=== PATIENT | male | born 1995 | race Caucasian/White ===

== ENCOUNTER 2018-11-27 20:47 | Emergency (ER) | payer BC, SELFPAY ==
[2018-11-27 20:49] VITALS: BP 130/84; PULSE 84; RESP 17; TEMP 36.4; O2SAT 100; BMI 28.0
--- NOTE | 2018-11-27 21:15 | CT_ITS ---
STUDY: CT BRAIN WITHOUT CONTRAST REASON FOR EXAM: Male, 23 years old. Trauma RADIATION DOSAGE (If Supplied By Facility): CTDIvol = ( 44.99 ) mGy, DLP = ( 762.36 ) mGycm TECHNIQUE: Transaxial CT imaging of the brain was performed without administration of intravenous contrast material. Individualized dose optimization techniques were used for this CT. COMPARISON: No relevant priors. FINDINGS: Normal soft tissue structures. Normal calvarium. Normal size ventricles and extra-axial spaces for the patient's age. Normal white matter tracts of the cerebral hemispheres. Normal basal ganglia and thalami. Normal brainstem. Normal cerebellum. There is no intracranial hemorrhage. There are no findings of an acute ischemic infarction. Acute fracture of the distal nasal bones. Chip fracture of the anterior nasal spine Large mucous retention cyst in right maxillary sinus. CT/Brain/Head without Contrast IMPRESSION: Normal unenhanced CT scan of the brain. Acute fracture of distal nasal bones and anterior nasal spine Electronically Signed: Judson Gabriel MD at 21:37 EDT , Service support ,
--- NOTE | 2018-11-27 21:16 | CT_ITS ---
STUDY: CT FACIAL BONES WITHOUT CONTRAST REASON FOR EXAM: Male, 23 years old. Trauma RADIATION DOSAGE (If Supplied By Facility): CTDIvol = ( 29.38 ) mGy, DLP = ( 598.88 ) mGycm TECHNIQUE: The patient was scanned in a multi detector CT scanner. Sagittal and coronal images were reconstructed. Individualized dose optimization techniques were used for this CT. COMPARISON: None. FINDINGS: Diffuse soft tissue swelling of the nose and premaxillary region in the midline Normal orbital pan[place] and orbital contents. Mildly depressed fracture of the distal right nasal bone and more proximal left nasal bone. Tiny chip fracture of the anterior nasal spine with mild separation of fracture fragments Large mucous retention cyst right maxillary sinus and smaller one in the left sphenoid sinus. Mild mucosal thickening of the ethmoid sinuses greater on the right CT/Sinus/Facial Bone IMPRESSION: Acute fractures of the nasal bones and tiny chip fracture of the anterior nasal spine Electronically Signed: Judson Gabriel MD at 21:40 EDT , Service support ,
--- NOTE | 2018-11-27 23:05 | ED.DCSUM_ITS ---
History of Present Illness Chief Complaint: Syncope Narrative: Patient presenting secondary to a syncopal episode and a facial injury. Patient reports that he had just gotten to the bar and got his first beer and stepped outside to smoke a cigarette. He reports that he was drinking the beer, and he aspirated it. He reports that he started to forcibly cough, and then suffered a syncopal episode. He reports that when he woke up there are people standing around him and he had a significant amount of facial pain. He reports a moderate amount of sharp pain in his face worse with palpation, and reports that he is continuing to have bleeding. Patient reports that his tetanus status is up-to-date. He is not on any sort of anticoagulants. Past Medical History - Allergies and Home Meds Allergies/Adverse Reactions: Allergies No Known Allergies Allergy (Verified 11/27/18 20:48) Primary Care Physician: Terry Bronson MD [STAFF PHYSICIAN] - 1-2 Weeks Care Physician,No Primary [Primary Care Provider] - 3-5 Days suture removal Smoking Status: Current every day smoker Review of Systems All systems negative except as indicated Eyes: Denies: Visual changes - bilaterally ENT: Reports: - - Facial and nasal trauma Physical Exam Vital Signs/Narrative: Vital Signs Temp Pulse Resp BP Pulse Ox 11/27/18 20:49 97.5 F L 84 17 130/84 H 100 General: - - Airway is patent, breath sounds are equal bilateral, central and peripheral pulses 2+ and symmetric. GCS 15 out of 15. Well-nourished well- developed male no acute distress sitting comfortably in bed. Head: - - Abrasion noted over the patient's left forehead. Patient has a significant amount of nasal swelling and tenderness to palpation. He has dried blood in both of his nares. There is does not appear to be a nasal septal hematoma. Patient has a small half centimeter laceration just underneath the right nostril. There does not appear to be any malocclusion. Eyes: Perrl, EOMI ENT: TM's clear, No hemotympanum or drainage, No trauma Neck: Nontender, Full ROM Cardiovascular: Regular rate, Regular rhythm, No murmurs Respiratory: No distress, CTA bilaterally, Chest nontender Abdomen: Soft, Nontender, Nondistended, Normal bowel sounds Back: Nontender Skin: Normal color, No rash Neurological: Alert, Oriented x3, Cranial nerves II-XII grossly intact, Normal Strength, Normal Sensation Psychological: Normal affect Diagnostic/Tx/Re-eval - Medical Decision Making Patient presented secondary to facial injury. The patient's passing out episode really sounds like a vagal event after he aspirated. I do not believe that further work-up is indicated for that. CT brain and facial showed evidence of multiple nasal fractures. Patient's nasal laceration was addressed as noted in the procedure note. Patient continued to have some bleeding from his nose, he was given Afrin. Patient will be given ENT follow-up for his nasal fractures. Patient was discharged. Procedures - Lacerations No standard instances Length: 6 in Depth: Skin Laceration Repair: Lidocaine with epi Irrigated (ml): 10 Number of Sutures/[place]: 1 Suture Information: Ethilon, 6-0 Disposition: Home ED Disposition - Plan for ED Patient: Disposition: Home or Assisted Living Diagnosis: Lip laceration, Nasal fracture Instructions: FRACTURE, Nose (with X-Ray), LACERATION, All, SYNCOPE, Vasovagal Referrals: Care Physician,No Primary [Primary Care Provider] - 3-5 Days suture removal Terry Bronson MD [STAFF PHYSICIAN] - 1-2 Weeks
[2018-11-27] MEDS: Oxymetazoline 0.05% 1 SPRAY SPRAY.BTL 2 SPRAY NASAL (23:25)
[2018-11-27 23:27] VITALS: BP 158/84; PULSE 91; RESP 16; O2SAT 98
== END 2018-11-27 23:37 | disposition home or self-care (01) ==
PROVIDERS: Emergency Provider Emergency Medicine
DX: S01.511A Laceration without foreign body of lip, initial encounter (principal); S02.2XXA Fracture of nasal bones, initial encounter for closed fracture; F17.210 Nicotine dependence, cigarettes, uncomplicated; W18.30XA Fall on same level, unspecified, initial encounter; Y93.89 Activity, other specified; Y92.838 Other recreation area as the place of occurrence of the external cause; Y99.9 Unspecified external cause status
CPT/HCPCS: 70450; 70486; 99283